=== PATIENT | female | born 1955 | race Caucasian/White ===

== ENCOUNTER 2016-04-10 20:04 | Emergency (ER) | payer MEDICARE ==
[2016-04-10 20:45] LABS: HEMOGLOBIN 14.1 gm/dl (12.3-15.3); RED BLOOD COUNT 4.6 M/UL (4.00-5.10); WHITE BLOOD COUNT 6.3 K/UL (4.5-11.0)
[2016-04-10 21:04] LABS: BUN/CREATININE RATIO 20 (0-10)
== END 2016-04-11 08:30 | disposition left against medical advice (07) ==
LOC: ER1 20:04 → ZEROF 23:00 → ER1 23:00
PROVIDERS: Student in an Organized Health Care Education/Training Program
DX: J45.901 Unspecified asthma with (acute) exacerbation (principal); R09.02 Hypoxemia; I10 Essential (primary) hypertension; F17.200 Nicotine dependence, unspecified, uncomplicated; Z79.891 Long term (current) use of opiate analgesic; Z79.899 Other long term (current) drug therapy
CPT/HCPCS: 36415; 36600; 71010; 80053; 81001; 82550; 82553; 82803; 83605; 83874; 84484; 85025; 87040; 93005; 94640; 94664; 96361; 96365; 96366; 96375; 99285; J1956; J2930